=== PATIENT | male | born 1970 | race Caucasian/White ===

== ENCOUNTER 2017-06-28 08:08 | Emergency (ER) | payer MEDICAID ==
[~2017-06-28] VITALS: Ht 165.1 cm; Wt 79.0 kg
[~2017-06-28 08:08] MED LIST: BACL10TA2 PO; CYCL-1 PO; DIAZ5TAB5 PO; GABA-532 PO; LORA2TAB PO; OMEP20CA4 PO; OXYC-150 PO; PARO30TA4 PO; QUET-1 PO
[2017-06-28] MEDS ORDERED: METH500T6 PO (08:29)
[2017-06-28] MEDS ORDERED: ketorolac trometh inj. 60 MG/2 ML VIAL IM ONE (08:50)
[2017-06-28 09:09] VITALS: BP 124/93
== END 2017-06-28 09:10 | disposition home or self-care (01) ==
LOC: ER 08:08
DX: G89.29 Other chronic pain (principal); M54.5 Low back pain; Z59.0 Homelessness; Z60.2 Problems related to living alone; Z88.1 Allergy status to other antibiotic agents
CPT/HCPCS: 96372; 99283; J1885

== ENCOUNTER 2021-08-18 10:14 | Day surgery (SDC) | payer MEDICAID ==
[2021-08-11 11:22] LABS: BASOPHILS # (AUTO) 0.1 X10'3 (0-0.2); BASOPHILS % (AUTO) 1.2 % (0-1); EOSINOPHILS # (AUTO) 0.8 X10'3 (0-0.9); EOSINOPHILS % (AUTO) 6.9 % (0-6); LYMPHOCYTES # (AUTO) 2.9 X10'3 (1.1-4.8); LYMPHOCYTES % (AUTO) 25.7 % (21-51); MEAN CORPUSCULAR HEMOGLOBIN 31.4 PG (27.0-31.0); MEAN CORPUSCULAR HGB CONC 33.2 g/dL (33.0-36.5); MEAN CORPUSCULAR VOLUME 94.7 FL (78-98); MEAN PLATELET VOLUME 7.5 FL (7.4-10.4); MONOCYTES # (AUTO) 0.9 X10'3 (0-0.9); NEUTROPHILS # (AUTO) 6.4 X10'3 (1.8-7.7); NEUTROPHILS % (AUTO) 58.2 % (42-75); PRE OP HEMATOCRIT 47.7 % (42.0-52.0); PRE OP HEMOGLOBIN 15.8 g/dL (14.0-17.9); PRE OP PLATELET COUNT 347 X10'3 (140-440); RED BLOOD COUNT 5.04 X10'6 (4.70-6.10); RED CELL DISTRIBUTION WIDTH 13.2 % (11.5-14.5)
[2021-08-11 11:37] LABS: ALBUMIN 3.8 G/DL (3.4-5.0); ALBUMIN/GLOBULIN RATIO 1.2 (1.1-1.5); ALKALINE PHOSPHATASE 31 IU/L (46-116); BLOOD UREA NITROGEN 19 MG/DL (7-18); BUN/CREATININE RATIO 20.2 (5.4-32.0); CHLORIDE 106 MMOL/L (99-107); CREATININE 0.94 MG/DL (0.60-1.10); PRE OP ALT 24 U/L (30-65); PRE OP ANION GAP 9 (8-16); PRE OP AST 15 U/L (10-37); PRE OP BILIRUB, TOTAL 0.5 MG/DL (0.0-1.0); PRE OP GLUCOSE 99 MG/DL (70-104); PRE OP POTASSIUM 3.9 MMOL/L (3.4-5.1); PRE OP SODIUM 140 MMOL/L (135-145); TOTAL PROTEIN 7.1 G/DL (6.4-8.2); eGFR 85 ML/MIN
[~2021-08-18] VITALS: Ht 162.6 cm; Wt 75.7 kg
[2021-08-18] VITALS (11 sets, daily range): BP systolic 112–133; BP diastolic 72–95
[~2021-08-18 10:14] MED LIST changes: -BACL10TA2 PO; -CYCL-1 PO; -DIAZ5TAB5 PO; -GABA-532 PO; -LORA2TAB PO; -OMEP20CA4 PO; -OXYC-150 PO; -PARO30TA4 PO; -QUET-1 PO; +cefazolin/dext.iso 2gm/50ml IV ONE; +famotidine 20mg tablet PO ONE; +probiotics; +ringers solution, lacted 1,000 ML IV SCH; +vitamin c
[2021-08-18] MEDS ORDERED: LIDOcaine 1% (10mg/ml)w/preservative inj. 20ml MDV ONE (12:42)
[2021-08-18] MEDS ORDERED: BUPIVAcaine 0.5% inj/PF 30 ML ONE (12:43)
[2021-08-18] MEDS ORDERED: midazolam 1 mg/ML 2ml injection ONE (13:03)
[2021-08-18] MEDS ORDERED: fentaNYL /PF 50mcg/ml 5ml ampule ONE (13:04)
[2021-08-18] MEDS ORDERED: acetaminophen 1,000mg/100ml IV 100 ML IV ONE (13:28)
[2021-08-18] MEDS ORDERED: propofol inj 20 ML IV ONE (13:28)
[2021-08-18] MEDS ORDERED: rocuronium 10mg/ml inj IV ONE (13:28)
[2021-08-18] MEDS ORDERED: ondansetron/PF 4mg/2ml inj ONE (13:28)
[2021-08-18] MEDS ORDERED: LIDOcaine 2% (20mg/ml) 5ml vial ONE (13:28)
[2021-08-18] MEDS ORDERED: dexamethasone sod phosphate 4mg/ml inj. ONE (13:28)
[2021-08-18] MEDS ORDERED: HYDROmorphone/PF 0.2 MG/ML SYRINGE IV PRN ×2 (13:35)
[2021-08-18] MEDS ORDERED: labetalol 20mg/4ml (5mg/ml) syringe IV PRN (13:35)
[2021-08-18] MEDS ORDERED: ketorolac trometh. 30mg/ml inj. IV ONE (13:35)
[2021-08-18] MEDS ORDERED: ondansetron/PF 4mg/2ml inj IV PRN (13:35)
[2021-08-18] MEDS ORDERED: ringers solution, lacted 1,000 ML IV SCH (13:35)
[2021-08-18] MEDS ORDERED: hydrALAZINE 20mg/ml inj. IV PRN (13:35)
[2021-08-18] MEDS ORDERED: meperidine/PF 25mg/ml syringe IV PRN (13:35)
[2021-08-18] MEDS ORDERED: proCHLORperazine 10 MG/2 ml inj IV PRN (13:35)
[2021-08-18] MEDS ORDERED: fentaNYL/PF 50MCG/1 ML 2ML syringe IV PRN ×2 (13:35)
[2021-08-18] MEDS ORDERED: glycopyrrolate 0.2mg/ml inj ONE (14:25)
[2021-08-18] MEDS ORDERED: neostigmine methylsulfate 1 MG/ML 10ml vial ONE (14:25)
--- NOTE | 2021-08-18 14:43 | NUR ---
Received from OR via , accompanied by Anesthesiologist DR BRIDGES and report given by Anesthesiolgist. AWAKENS TO VOICE. VITALS STABLE. DRESSINGS DI. HARLEEN PAIN. ABD SOFT.
[2021-08-18] MEDS ORDERED: ibuprofen tablet 400 MG TABLET PO PRN (15:00)
[2021-08-18] MEDS ORDERED: acetaminophen 325mg tablet PO PRN (15:00)
[2021-08-18] MEDS ORDERED: LIDOcaine 2% 10ml TOPICAL JELLY (Urojet) MM ONE (19:10)
--- NOTE | 2021-08-18 19:33 | NUR ---
AWAKE AND ORIENTED. VITALS STABLE. DRESSINGS DI. STATES ONLY MINIMAL DISCOMFORT. HOME WITH HIS SISTER AT THIS TIME.
== END 2021-08-18 19:33 | disposition home or self-care (01) ==
LOC: PAS 10:14
PROVIDERS: ATTEND Surgery
DX: K40.20 Bilateral inguinal hernia, without obstruction or gangrene, not specified as recurrent (principal); K43.2 Incisional hernia without obstruction or gangrene; Z20.822 Contact with and (suspected) exposure to COVID-19; J43.9 Emphysema, unspecified; Z98.890 Other specified postprocedural states; Z88.1 Allergy status to other antibiotic agents; Z87.891 Personal history of nicotine dependence; Z79.899 Other long term (current) drug therapy; Z83.3 Family history of diabetes mellitus; Z80.9 Family history of malignant neoplasm, unspecified; Z82.49 Family history of ischemic heart disease and other diseases of the circulatory system
CPT/HCPCS: 36415; 49560; 49568; 49650; 80053; 82948; 85025; 93005; C1781; J0131; J1100; J1885; J2250; J2405; J2704; J2710; J3010; J3490; J7030; J7120; S0020; U0003; U0005; Z7506; Z7508; Z7512; A4215; A4618